=== PATIENT | female | born 1955 | race African-American/Black ===

== ENCOUNTER 2019-07-26 14:08 | Emergency (ER) | payer MEDICARE ==
[2019-07-26 16:05] VITALS: BP 138/72
--- NOTE | 2019-07-27 06:35 | ED ---
Lower Extremity - HPI Summary HPI Summary: This patient is a 64-year-old female with no significant past medical history presenting to the ED after a fall. She is endorsing pain to the right knee. She fell 5 days ago and has been ambulating. Patient states she slipped on ice and fell down 4 steps on rt knee on 07/21. Denies additional injuries, ambulatory. She states she is having worsening pain with ambulation, better with rest. She has not used heat or ice. She has not used ibuprofen or Tylenol. She is endorsing pain mainly to the medial portion of the knee without pain to the lateral portion. No pain to the calf or behind the knee. Denies pain to the ankle. She denies any effusion. Patient takes no medications, otherwise healthy. Allergies ibuprofen and naproxen. - History of Current Complaint Chief Complaint: EDExtremityLower Stated Complaint: RIGHT KNEE INJURY PER PT Time Seen by Provider: 07/26/19 15:22 Hx Obtained From: Patient Mechanism Of Injury: Twisted Onset of Pain: Days Onset/Duration: Days Severity Initially: Mild Severity Currently: Mild Pain Intensity: 3 Pain Scale Used: 0-10 Numeric Location: Is Discrete @ - right medial knee pain Associated Signs And Symptoms: Positive: Knee Pain. Negative: Swelling, Redness , Bruising, Weakness Aggravating Factor(s): Standing, Ambulation, Movement, Weight Bearing Alleviating Factor(s): Rest Able to Bear Weight: Yes - Allergies/Home Medications Allergies/Adverse Reactions: Allergies Allergy/AdvReac Type Severity Reaction Status Date / Time ibuprofen Allergy Nausea And Verified 07/26/19 14:30 Vomiting naproxen Allergy Nausea And Verified 07/26/19 14:30 Vomiting PMH/Surg Hx/FS Hx/Imm Hx Previously Healthy: Yes - Immunization History Hx Pertussis Vaccination: No Immunizations Up to Date: Yes Infectious Disease History: No Infectious Disease History: Denies: Traveled Outside the [place] in Last 30 Days - Social History Occupation: Employed Full-time Lives: With Family Alcohol Use: None Hx Substance Use: No Substance Use Type: Reports: None Smoking Status (MU): Former Smoker Review of Systems Negative: Fever, Chills, Fatigue, Skin Diaphoresis Negative: Palpitations, Chest Pain Negative: Shortness Of Breath, Cough Genitourinary: Negative Positive: no symptoms reported, see HPI Positive: Arthralgia - right knee pain Skin: Negative Neurological/Mental Status: Negative All Other Systems Reviewed And Are Negative: Yes Physical Exam Triage Information Reviewed: Yes Vital Signs On Initial Exam: Initial Vitals Temp Pulse Resp BP Pulse Ox 97.8 F 68 18 128/79 99 07/26/19 14:26 07/26/19 14:26 07/26/19 14:26 07/26/19 14:26 07/26/19 14:26 Vital Signs Reviewed: Yes Appearance: Positive: Well-Appearing, Well-Nourished Skin: Positive: Warm, Skin Color Reflects Adequate Perfusion Head/Face: Positive: Normal Head/Face Inspection Eyes: Positive: EOMI, LUCIEN, Conjunctiva Clear Neck: Positive: Supple, No Lymphadenopathy Respiratory/Lung Sounds: Positive: Clear to Auscultation, Breath Sounds Present Cardiovascular: Positive: RRR, Pulses are Symmetrical in both Upper and Lower Extremities Musculoskeletal: Positive: Pain @ - right knee pain Neurological: Positive: Speech Normal Psychiatric: Positive: Normal, Affect/Mood Appropriate AVPU Assessment: Alert Procedures - Sedation Patient Received Moderate/Deep Sedation with Procedure: No Diagnostics - Vital Signs Vital Signs Temp Pulse Resp BP Pulse Ox 07/26/19 16:04 97.4 F 75 20 138/72 98 07/26/19 14:26 97.8 F 68 18 128/79 99 - Laboratory Lab Statement: Any lab studies that have been ordered have been reviewed, and results considered in the medical decision making process. Lower Extremity Course/Dx - Course Course Of Treatment: Physical examination, there is a small notable effusion to the medial anterior portion of the right knee. No erythema, ecchymosis or limitations with range of motion of the knee. Denies any hip and ankle pain. Patient remains ambulatory. She does not feel weak into the right lower extremity. Offered Tylenol however patient declined. X-ray of the knee was obtained which shows: Mild osteoarthritis without significant change. Probable small associated joint effusion. Lachmans negative. Pt will be dc'd with knee strain. - Diagnoses Differential Diagnosis/HQI/PQRI: Positive: Fracture (Closed), Fracture (Open), Sprain, Strain Provider Diagnoses: Strain of right knee Discharge ED - Sign-Out/Discharge Documenting (check all that apply): Patient Departure - Discharge Plan Condition: Stable Disposition: HOME Patient Education Materials: Knee Pain (ED) Referrals: Ginette Corona MD [Medical Doctor] - Steve Graham MD [Primary Care Provider] - Additional Instructions: Ice and elevation to the area Rest as much as possible If you feel symptoms are worsening, please follow up with orthopedics - Billing Disposition and Condition Condition: STABLE Disposition: Home - Attestation Statements Provider Attestation: I was available for consult. This patient was seen by the ABDOUL. The patient was not presented to, seen by, or examined by me. Ollie Helms MD
== END 2019-07-26 16:04 | disposition home or self-care (01) ==
LOC: ED 14:08
DX: S86.811A Strain of other muscle(s) and tendon(s) at lower leg level, right leg, initial encounter (principal); W00.0XXA Fall on same level due to ice and snow, initial encounter; Y92.9 Unspecified place or not applicable; Z87.891 Personal history of nicotine dependence; Z88.8 Allergy status to other drugs, medicaments and biological substances
CPT/HCPCS: 99282

== ENCOUNTER 2019-07-29 12:21 | Emergency (ER) | payer MEDICARE, MEDICAID ==
--- NOTE | 2019-07-29 13:36 | ED ---
Lower Extremity - HPI Summary HPI Summary: 64-year-old female with no significant past medical history presents to the emergency department today complaining of right knee pain with associated "clicking". Patient states she was here 8 days ago after twisting her knee in an accident and had a negative workup with likely minor ligamental injuries. There is no evidence of fracture at her emergency room evaluation. Patient is able to ambulate and endorses 7 out of 10 pain which is worse with flexion past 90 of the right knee. There is no obvious deformity, ecchymosis, erythema. Patient has full range of motion. Patient otherwise feels well and denies fever , chest pain, abdominal pain, nausea, vomiting, diarrhea. - History of Current Complaint Chief Complaint: EDExtremityLower Stated Complaint: RIGHT KNEE PAIN PER PT Time Seen by Provider: 07/29/19 13:02 Hx Obtained From: Patient Onset of Pain: Days Onset/Duration: Days Severity Initially: Moderate Severity Currently: Moderate Pain Intensity: 6 Pain Scale Used: 0-10 Numeric Timing: Constant Location: Is Discrete @ - right knee Character Of Pain: Aching, Stiffness Associated Signs And Symptoms: Positive: Knee Pain. Negative: Swelling, Redness , Bruising, Weakness Aggravating Factor(s): Standing, Ambulation, Movement, Weight Bearing, Stairs Alleviating Factor(s): Rest Able to Bear Weight: Yes - Allergies/Home Medications Allergies/Adverse Reactions: Allergies Allergy/AdvReac Type Severity Reaction Status Date / Time ibuprofen Allergy Nausea And Verified 07/29/19 13:15 Vomiting naproxen Allergy Nausea And Verified 07/29/19 13:15 Vomiting Home Medications: Home Medications Albuterol HFA INHALER* [Ventolin HFA Inhaler*] 2 puff INH Q6HR PRN 07/29/19 [ History Confirmed 07/29/19] Metformin HCl 500 mg PO BID 07/29/19 [History Confirmed 07/29/19] Montelukast Sodium TAB* [Singulair 5 mg TAB*] 1 tab PO DAILY 07/29/19 [History Confirmed 07/29/19] PMH/Surg Hx/FS Hx/Imm Hx Infectious Disease History: No Infectious Disease History: Denies: Traveled Outside the [place] in Last 30 Days - Social History Alcohol Use: Occasionally Hx Substance Use: No Substance Use Type: Reports: Marijuana Substance Use Comment - Amount & Last Used: occassional Smoking Status (MU): Current Some Day Smoker Review of Systems Constitutional: Negative Eyes: Negative ENT: Negative Cardiovascular: Negative Respiratory: Negative Gastrointestinal: Negative Genitourinary: Negative Positive: Arthralgia. Negative: Myalgia, Decreased ROM, Edema Skin: Negative Neurological/Mental Status: Negative Psychological: Normal All Other Systems Reviewed And Are Negative: Yes Physical Exam - Summary Physical Exam Summary: Inspection of the knee reveals no obvious deformity, ecchymosis, edema, erythema. Patient has full range of motion of the knee. There is mild patellar apparatus noted with flexion and extension. Patella is midline and tracking. No pain was valgus or varus stress on the knee. Negative anterior and posterior drawer. Pain is elicited with Kiko's test consistent with meniscal damage. Patient is neurovascularly intact Triage Information Reviewed: Yes Vital Signs On Initial Exam: Initial Vitals Temp Pulse Resp BP Pulse Ox 98.3 F 65 16 149/90 98 07/29/19 12:42 07/29/19 12:42 07/29/19 12:42 07/29/19 12:42 07/29/19 12:42 Vital Signs Reviewed: Yes Appearance: Positive: Well-Appearing, No Pain Distress, Well-Nourished Skin: Positive: Warm, Skin Color Reflects Adequate Perfusion Eyes: Positive: EOMI, LUCIEN ENT: Positive: Hearing grossly normal Respiratory/Lung Sounds: Positive: Clear to Auscultation, Breath Sounds Present Cardiovascular: Positive: RRR, S1, S2 Musculoskeletal: Positive: Strength/ROM Intact Neurological: Positive: Sensory/Motor Intact, Alert, Oriented to Person Place, Time, Normal Gait, Facial Symmetry, Speech Normal Psychiatric: Positive: Normal, Affect/Mood Appropriate AVPU Assessment: Alert Procedures - Sedation Patient Received Moderate/Deep Sedation with Procedure: No Diagnostics - Vital Signs Vital Signs Temp Pulse Resp BP Pulse Ox 07/29/19 12:42 98.3 F 65 16 149/90 98 - Laboratory Lab Statement: Any lab studies that have been ordered have been reviewed, and results considered in the medical decision making process. Lower Extremity Course/Dx - Course Course Of Treatment: Patient was evaluated in the emergency department today for right knee pain. Vitals noted. Patient was given 650 mg of Tylenol for pain. Physical exam was consistent with meniscal injury however there is no evidence of fracture or acute medical problem requiring intervention at this time. Patient was given discharge instructions with follow-up to orthopedics for further evaluation and management. - Diagnoses Differential Diagnosis/HQI/PQRI: Positive: Arthritis, Contusion, Fracture ( Closed), Sprain, Strain, Tendonitis Provider Diagnoses: Knee pain Discharge ED - Sign-Out/Discharge Documenting (check all that apply): Patient Departure - Discharge Plan Condition: Stable Disposition: HOME Patient Education Materials: Knee Pain (ED) Referrals: Steve Graham MD [Primary Care Provider] - 5 Days Yan Viveros MD [Medical Doctor] - 5 Days Additional Instructions: There is no evidence of acute medical process requiring intervention at this time. Please follow-up with orthopedics in 5-7 days for further evaluation and management. Until then you may take ibuprofen 650 mg every 6 hours as needed for pain. You may also use supportive devices such as Pancho wrap or bandages. You should also apply heat to the area which will reduce your pain. Return to activity as tolerated. Please return to the emergency department immediately if you develop any new or worsening symptoms. - Billing Disposition and Condition Condition: STABLE Disposition: Home
[2019-07-29] MEDS ORDERED: Acetaminophen TAB* 325 MG PO ONE (13:39)
[2019-07-29 13:57] VITALS: BP 132/81
== END 2019-07-29 13:56 | disposition home or self-care (01) ==
LOC: ED 12:21
DX: M25.561 Pain in right knee (principal); F17.200 Nicotine dependence, unspecified, uncomplicated
CPT/HCPCS: 99282; A9270-GY

== ENCOUNTER 2021-07-09 06:48 | Observation (INO) ==
[~2021-07-09 06:48] MED LIST: Buffered Lidocaine 1% SYRIN 1 ml INTRADERM ONE; Lactated Ringers 1000 ml BAG 1,000 ML IV SCH
[2021-07-09] MEDS ORDERED: ceFAZolin 2 GM PREMIX 2 GM/50 ML BAG ONE (08:07)
[2021-07-09 08:28] LABS: INR 1.07 (0.86-1.15)
[2021-07-09] MEDS ORDERED: Midazolam 2 mg/2 ml VIAL 1 mg/ml 2 ml VIAL (2 mg) ONE (08:31)
[2021-07-09] MEDS ORDERED: fentaNYL 100 mcg/2 ml 50 MCG/ML VIAL ONE (08:31)
[2021-07-09] MEDS ORDERED: Lidocaine 2% PF 5 ML VIAL ONE (08:33)
[2021-07-09] MEDS ORDERED: Propofol 10 mg/ml 100 ML BTL 100 ML ONE (08:59)
[2021-07-09] MEDS ORDERED: Phenylephrine IV 10 MG/ML 1 ml VIAL ONE (09:04)
[2021-07-09] MEDS ORDERED: Naloxone 0.4 mg VIAL 0.4 mg/ml 1 ml VIAL IV PRN (10:19)
[2021-07-09] MEDS ORDERED: oxyCODONE/Acetamin 5/325 mg TAB PO PRN (10:19)
[2021-07-09] MEDS ORDERED: DiMENhydriNATE IV 50 mg/ml 1 ml VIAL IV PUSH PRN (10:19)
[2021-07-09] MEDS ORDERED: EPHEDrine (Pressors) 50 MG/ML VIAL ONE (10:40)
[2021-07-09] MEDS ORDERED: Dexamethasone IV 4 MG/ML VIAL 1 ml VIAL ONE (10:40)
[2021-07-09] MEDS ORDERED: Ondansetron 4 mg VIAL 2 MG/ML 2 ml VIAL ONE (10:40)
[2021-07-09] MEDS ORDERED: diPHENhydraMINE IV 50 MG/ML 1 ml VIAL (BENADRYL) IV PRN (11:04)
[2021-07-09] MEDS ORDERED: Lactulose 30 ml UDC PO PRN (11:04)
[2021-07-09] MEDS ORDERED: diPHENhydraMINE 25 mg TAB PO PRN (11:04)
[2021-07-09] MEDS ORDERED: Magnesium Hydroxide LIQ 30 ML UDC PO PRN (11:04)
[2021-07-09] MEDS ORDERED: Ondansetron ODT 4 mg TAB 4 MG TAB PO PRN (11:04)
[2021-07-09] MEDS ORDERED: Morphine 2 MG/ML SYRINGE IV PRN (11:04)
[2021-07-09] MEDS ORDERED: Ondansetron 4 mg VIAL 2 MG/ML 2 ml VIAL IV PRN (11:04)
[2021-07-09] MEDS ORDERED: Albuterol HFA INHALER 8 gm MDI INH PRN (11:11)
[2021-07-09] MEDS ORDERED: oxyCODONE/Acetamin 5/325 mg TAB ONE (13:00)
[2021-07-09] MEDS ORDERED: HYDROmorphone 1 MG/1 ML SYRINGE ONE (13:12)
[2021-07-09] MEDS: HYDROmorphone 1 MG/1 ML SYRINGE IV PRN ×2 (13:13→13:18)
[2021-07-09] MEDS: Lactated Ringers 1000 ml BAG 1,000 ML IV SCH (15:07)
[2021-07-09] MEDS: ceFAZolin 1 GM ADVAN 1 GM in NS 0.9% 50 ML 50 ML IVPB SCH (18:07)
[2021-07-09] MEDS: Magnesium Hydroxide LIQ 30 ML UDC PO SCH (21:12)
[2021-07-10] MEDS: Lactated Ringers 1000 ml BAG 1,000 ML IV SCH (00:45)
[2021-07-10] MEDS: ceFAZolin 1 GM ADVAN 1 GM in NS 0.9% 50 ML 50 ML IVPB SCH ×2 (02:28→09:41)
[2021-07-10 06:20] LABS: Hematocrit 30 % (35-47); Hemoglobin 10.5 g/dL (12.0-16.0); Mean Platelet Volume 9.5 fL (7.4-10.4); Platelet Count 211 10^3/uL (150-450)
[2021-07-10 06:38] LABS: Calcium 9.9 mg/dL (8.6-10.3); Potassium 4.3 mmol/L (3.5-5.0); eGFR CKD-EPI 65.7 (>60)
[2021-07-10] MEDS ORDERED: Vitamin THERAPEUTIC TAB PO SCH (09:00)
[2021-07-10] MEDS: Magnesium Hydroxide LIQ 30 ML UDC PO SCH (09:45)
[2021-07-10 12:03] VITALS: BP 136/78
== END 2021-07-10 14:00 | disposition home or self-care (01) ==
LOC: SSU 06:48 → OR 06:48 → EDSTATUS 09:15
PROVIDERS: ADMIT Orthopaedic Surgery Adult Reconstructive Orthopaedic Surgery; ATTEND Orthopaedic Surgery Adult Reconstructive Orthopaedic Surgery